=== PATIENT | female | born 1955 | race Two or more races ===

== ENCOUNTER 2019-04-14 07:12 | Outpatient (CLI) | payer OTHER | END 2019-04-14 07:16 | disposition home or self-care (01) | LOC: SONOGRAMA 07:12 | DX: E04.2 Nontoxic multinodular goiter (principal) ==

== ENCOUNTER 2020-09-13 11:54 | Outpatient (CLI) | payer OTHER | END 2020-09-13 15:00 | disposition home or self-care (01) | LOC: LAB 11:54 | PROVIDERS: ATTEND Obstetrics & Gynecology | DX: I10 Essential (primary) hypertension (principal); E10.9 Type 1 diabetes mellitus without complications; N95.0 Postmenopausal bleeding; Z01.812 Encounter for preprocedural laboratory examination ==